=== PATIENT | male | born 1965 | race Native Hawaiian/Other Pacific Islander ===

== ENCOUNTER 2018-10-02 10:02 | Emergency (ER) | payer OTHER ==
[~2018-10-02] VITALS: Ht 185.4 cm; Wt 95.3 kg
[2018-10-02 10:13] VITALS: TEMP 98.6
[2018-10-02 10:59] LABS: PLATELET COUNT 309 K/uL (142-355)
[2018-10-02 11:11] LABS: POTASSIUM 4.2 mmol/L (3.6-5.2); SODIUM 138 mmol/L (136-145)
[2018-10-02 11:50] VITALS: BP 129/79
== END 2018-10-02 11:54 | disposition home or self-care (01) ==
LOC: ED 10:02
PROVIDERS: Family Medicine
DX: J06.9 Acute upper respiratory infection, unspecified (principal); R00.2 Palpitations
CPT/HCPCS: 80053; 81000; 84484; 85027; 87502; 93005; 99283